=== PATIENT | male | born 1965 | race Caucasian/White ===

== ENCOUNTER 2017-11-24 08:49 | Outpatient (CLI) | payer MEDICAID | END 2017-11-24 08:50 | disposition critical access hospital (66) | LOC: EMS 08:49 | PROVIDERS: ATTEND Surgery | DX: R41.82 Altered mental status, unspecified (principal) | CPT/HCPCS: A0425; A0429 ==

== ENCOUNTER 2017-11-24 09:51 | Observation (INO) | payer MEDICAID ==
[2017-11-24] MEDS ORDERED: SODIUM CHLORIDE 0.9% 1,000 ML IV ONE ×2 (10:04→11:10)
--- NOTE | 2017-11-24 11:15 | ED Physician Documentation ---
History of Present Illness - Stated complaint Stated Complaint: MED REFILL - Chief complaint Chief Complaint: Neuro - History obtained from History obtained from: Patient, EMS - Additonal information Additional information: The patient is a 52-year-old male with care home history in a methadone program , who arrives via ambulance after he was found confused this morning, standing in a field. He was obviously cold and disheveled. Medics evaluated him and found no evidence of acute trauma, and a normal blood sugar of 98. After being placed in the ambulance and getting warmer, he was able to converse with medics. However he then became less responsive while in route to the emergency department. His last methadone use was yesterday, and he denies the use of any other drugs. He lives with his mother, and she told medics that she had not seen him since more than 24 hours ago. History is limited due to the patient's decreased mental status. Review of Systems Unable to obtain: AMS Constitutional: reports: Chills Cardiac: denies: Chest pain / pressure Respiratory: denies: Dyspnea GI: denies: Abdominal Pain Skin: reports: Lesions (open sore on left ankle) Neurologic: reports: Altered mental status PD PAST MEDICAL HISTORY - Past Medical History Cardiovascular: Deep vein thrombosis GI: Hepatitis - Past Surgical History Ortho: Spine surgery, Other - Present Medications Home Medications: Ambulatory Orders Medication Instructions Recorded Confirmed Methadone HCl [Methadose] 100 mg PO DAILY 03/14/16 03/14/16 Gabapentin [Gabapentin] 400 mg PO BID 11/24/17 Gabapentin [Gabapentin] 800 mg PO TID 11/24/17 Lisinopril [Lisinopril] 10 mg PO DAILY 11/24/17 11/24/17 Prazosin HCl [Prazosin HCl] 2 mg PO TID 11/24/17 11/24/17 Promethazine HCl [Promethazine HCl] 25 mg PO Q6H PRN 11/24/17 11/24/17 Tamsulosin [Flomax] 0.4 mg PO DAILY 11/24/17 11/24/17 cloNIDine HCl [Clonidine HCl] 0.3 mg PO TID 11/24/17 11/24/17 hydrOXYzine HCl [Hydroxyzine HCl] 50 mg PO Q6H 11/24/17 11/24/17 - Allergies Allergies/Adverse Reactions: Allergies Allergy/AdvReac Type Severity Reaction Status Date / Time No Known Drug Allergies Allergy Verified 03/14/16 04:37 - Living Situation Living Situation: reports: With family (Mother) Living Arrangement: reports: At home - Social History Does the pt smoke?: Yes Smoking Status: Current every day smoker Does the pt drink ETOH?: No Does the pt have substance abuse?: Yes - Immunizations Immunizations are current?: Yes PD ED PE NORMAL - Vitals Vital signs reviewed: Yes (hypertensive) - General General: Other (Ill kempt, cool to touch, with decreased level of alertness.) - HEENT HEENT: Atraumatic, EOMI, Other (Pupils are 3 mm equal and reactive.) - Neck Neck: Supple, no meningeal sign, No adenopathy - Cardiac Cardiac: RRR - Respiratory Respiratory: Clear bilaterally - Abdomen Abdomen: Soft, Non tender - Back Back: No CVA TTP - Derm Derm: Other (2-1/2 cm diameter open sore on the medial aspect of the left ankle. ) - Extremities Extremities: Other (Cool to touch, with abrasions scattered along the forearms and hands.) - Neuro Neuro: Other (Somnolent, but responds to verbal stimulation. Does not reliably answer questions, but does obey simple instructions. No focal motor or sensory deficit is detected.) Eye Opening: To Voice Motor: Obeys Commands Verbal: Confused GCS Score: 13 Results - Vitals Vitals: Vital Signs - 24 hr 11/24/17 11/24/17 09:55 12:19 Temperature 36 C L Heart Rate 62 48 L Respiratory 14 17 Rate Blood Pressure 169/87 H 168/93 H O2 Saturation 100 100 Oxygen O2 Source Room air - EKG (time done) 10:27 Rate: Rate (enter#) (49) Rhythm: Sinus bradycardia [place]: Normal Intervals: Normal NE, Prolonged QT QRS: Normal Ischemia: Normal ST segments Computer interpretation: Agree with computer - Labs Labs: Laboratory Tests 11/24/17 11/24/17 11/24/17 11:05 11:05 11:05 WBC 7.9 RBC 3.47 L Hgb 8.9 L Hct 27.2 L MCV 78.4 L MCH 25.5 L MCHC 32.6 RDW 19.4 H Plt Count 229 MPV 7.1 L Neut # 6.3 Lymph # 1.2 L Woodson # 0.3 Eos # 0.0 Baso # 0.0 Absolute Nucleated RBC 0.00 Nucleated RBC % 0.0 Sodium 141 Potassium 4.1 Chloride 113 H Carbon Dioxide 20 L Anion Gap 8.0 BUN 51 H Creatinine 2.0 H Estimated GFR (MDRD) 35 L Glucose 89 Lactic Acid Calcium 8.8 Total Bilirubin 0.6 AST 41 ALT 24 Alkaline Phosphatase 79 Total Creatine Kinase 3778 H* Troponin I < 0.04 Total Protein 8.3 H Albumin 3.1 L Globulin 5.2 H Albumin/Globulin Ratio 0.6 L Lipase 24 Urine Color Urine Clarity Urine pH Ur Specific [place] Urine Protein Urine Glucose (UA) Urine Ketones Urine Occult Blood Urine Nitrite Urine Bilirubin Urine Urobilinogen Ur Leukocyte Esterase Urine RBC Urine WBC Ur Squamous Epith Cells Urine Bacteria Ur Microscopic Review Urine Culture Comments Urine Opiates Screen Ur Oxycodone Screen Urine Methadone Screen Ur Propoxyphene Screen Ur Barbiturates Screen Ur Tricyclics Screen Ur Phencyclidine Scrn Ur Amphetamine Screen U Methamphetamines Scrn U Benzodiazepines Scrn Urine Cocaine Screen U Cannabinoids Screen 11/24/17 11/24/17 11:05 12:02 WBC RBC Hgb Hct MCV MCH MCHC RDW Plt Count MPV Neut # Lymph # [place]son # Eos # Baso # Absolute Nucleated RBC Nucleated RBC % Sodium Potassium Chloride Carbon Dioxide Anion Gap BUN Creatinine Estimated GFR (MDRD) Glucose Lactic Acid 0.7 Calcium Total Bilirubin AST ALT Alkaline Phosphatase Total Creatine Kinase Troponin I Total Protein Albumin Globulin Albumin/Globulin Ratio Lipase Urine Color YELLOW Urine Clarity CLEAR Urine pH 5.5 Ur Specific [place] 1.020 Urine Protein 100 H Urine Glucose (UA) NEGATIVE Urine Ketones NEGATIVE Urine Occult Blood LARGE H Urine Nitrite NEGATIVE Urine Bilirubin NEGATIVE Urine Urobilinogen 0.2 (NORMAL) Ur Leukocyte Esterase NEGATIVE Urine RBC 6-10 H Urine WBC 0-3 Ur Squamous Epith Cells NONE SEEN Urine Bacteria Rare Ur Microscopic Review INDICATED Urine Culture Comments NOT INDICATED Urine Opiates Screen POSITIVE H Ur Oxycodone Screen NEGATIVE Urine Methadone Screen POSITIVE H Ur Propoxyphene Screen NEGATIVE Ur Barbiturates Screen NEGATIVE Ur Tricyclics Screen NEGATIVE Ur Phencyclidine Scrn NEGATIVE Ur Amphetamine Screen NEGATIVE U Methamphetamines Scrn NEGATIVE U Benzodiazepines Scrn POSITIVE H Urine Cocaine Screen POSITIVE H U Cannabinoids Screen NEGATIVE - Rads (name of study) head CT Radiology: Prelim report reviewed, EMP read contemporaneously, See rad report ( Normal noncontrast head CT.) CXR Radiology: Prelim report reviewed, EMP read contemporaneously, See rad report ( Poor inspiratory effort. Atelectatic changes. No overt CHF, pneumonia, or other acute process.) PD MEDICAL DECISION MAKING - ED course Complexity details: reviewed results, re-evaluated patient, considered differential, d/w patient, d/w tour consultant ED course: The patient's clinical presentation is most significant for acute rhabdomyolysis , with a creatinine kinase of 3778. His urine tox screen is positive not only for methadone, but also for opiates, benzodiazepines, and cocaine. He appears dehydrated with a BUN 51 and creatinine 2.0, and a urine specific gravity 1.020. There is no physical evidence of acute trauma. CBC reveals anemia, with Hgb 8.9 and Hct 27.2. Establishing IV access was difficult in this patient with sclerosed veins, dehydration, and cold extremities. Initially an IV was established in a forehead vein. However the patient became transiently agitated and removed that IV. Anesthesia was consulted for PICC line placement. Several attempts at PICC line placement were unsuccessful. Subsequently an internal jugular vein was cannulated by anesthesia. Treatment in the emergency department included initiation of IV fluids. I discussed his condition with Dr. Neff who accepts him for admission to the hospital. Departure - Departure Disposition: 66 [facility] DC/Xfer Clinical Impression: Polysubstance abuse Rhabdomyolysis Qualifiers: Encounter type: initial encounter Anemia Qualifiers: Anemia type: unspecified type Qualified Code(s): D64.9 - Anemia, unspecified Skin ulcer Qualifiers: Non-pressure ulcer stage: unspecified non-pressure ulcer stage Qualified Code(s ): L98.499 - Non-pressure chronic ulcer of skin of other sites with unspecified severity Condition: Fair Discharge Date/Time: 11/24/17 14:34
[2017-11-24 11:22] LABS: BASOPHILS % (AUTO) 0.4 %; EOSINOPHILS % (AUTO) 0.1 %; HGB - HEMOGLOBIN 8.9 g/dL (14.0-18.0); LYMPHOCYTES # (AUTO) 1.2 10^3/uL (1.5-3.5); LYMPHOCYTES % (AUTO) 15.7 %; MEAN CORPUSCULAR HEMOGLOBIN 25.5 pg (27.0-31.0); MEAN CORPUSCULAR HGB CONC 32.6 g/dL (32.0-36.0); MEAN CORPUSCULAR VOLUME 78.4 fL (80.0-94.0); MEAN PLATELET VOLUME 7.1 fL (7.4-11.4); MONOCYTES # (AUTO) 0.3 10^3/uL (0.0-1.0); MONOCYTES % (AUTO) 4.3 %; NEUTROPHILS # (AUTO) 6.3 10^3/uL (1.5-6.6); NEUTROPHILS % (AUTO) 79.5 %; PLT - PLATELET COUNT 229 10^3/uL (130-450); RED BLOOD COUNT 3.47 10^6/uL (4.70-6.10); RED CELL DISTRIBUTION WIDTH 19.4 % (12.0-15.0); WHITE BLOOD COUNT 7.9 x10^3/uL (4.8-10.8)
--- NOTE | 2017-11-24 11:53 | CT Preliminary Report ---
Exam: CT HEAD W/O IMPRESSION: Normal examination. No demonstrated cause for the patient's symptoms. [facility] SITE ID: [id number]
[2017-11-24 11:55] LABS: ALBUMIN 3.1 g/dL (3.2-5.5); ALBUMIN/GLOBULIN RATIO 0.6 (1.0-2.2); BILIRUBIN,TOTAL 0.6 mg/dL (0.2-1.0); CALCIUM 8.8 mg/dL (8.5-10.3); TOTAL PROTEIN 8.3 g/dL (6.7-8.2)
--- NOTE | 2017-11-24 11:57 | XRAY Preliminary Report ---
Exam: XR CHEST 2 VIEW X-RAY IMPRESSION: Poor inspiratory effort. Atelectatic changes. No overt CHF, pneumonia or other acute proc ess. [facility] SITE ID: [id number]
--- NOTE | 2017-11-24 11:57 | CT Report ---
EXAM: CT HEAD EXAM DATE: 11/24/2017 11:40 AM. CLINICAL HISTORY: Decreased responsiveness in a 52-year-old male. COMPARISON: None. TECHNIQUE: Multiaxial CT images were obtained from the foramen magnum to the vertex. Reformats: Coron al. IV contrast: None. In accordance with CT protocol optimization, one or more of the following dose reduction techniques w ere utilized for this exam: automated exposure control, adjustment of mA and/or KV based on patient s ize, or use of iterative reconstructive technique. FINDINGS: Parenchyma: No intraparenchymal hemorrhage. No evidence of mass, midline shift, or CT findings of inf arction. Reyes-white differentiation is distinct. Extraaxial Spaces: Normal for age. No subdural or epidural collections identified. Ventricles: Normal in size and position. Sinuses and Orbits: Imaged paranasal sinuses, orbits, and mastoids show no significant abnormality. Bones: No evidence of fracture or calvarial defect. Other: None. IMPRESSION: Normal examination. No demonstrated cause for the patient's symptoms. [facility] Referring Provider Line: [phone] SITE ID: [id number]
--- NOTE | 2017-11-24 12:01 | XRAY Report ---
EXAM: CHEST RADIOGRAPHY, 2 VIEWS EXAM DATE: 11/24/2017 11:33 AM. CLINICAL HISTORY: 52-year-old male with cough. COMPARISON: None. TECHNIQUE: Sitting AP and lateral views. FINDINGS: Lungs/Pleura: Likely hypoventilatory changes both lung bases. No definite infiltrates. No pleural eff usion. No pneumothorax. Poor inspiratory effort. Mediastinum: Heart size normal considering body habitus and inspiratory effort. No pulmonary vascular congestion or adenopathy. Other: Trachea is midline. Osseous structures are unremarkable for age. IMPRESSION: Poor inspiratory effort. Atelectatic changes. No overt CHF, pneumonia, or other acute pro cess. [facility] Referring Provider Line: [phone] SITE ID: [id number]
[2017-11-24 12:19] LABS: MUDS CUTOFF CONCENTRATIONS CUTOFF CONC BELOW:
[2017-11-24 12:23] LABS: BILIRUBIN,URINE NEGATIVE (NEGATIVE); GLUCOSE, URINE (UA) NEGATIVE (NEGATIVE); KETONES,URINE (UA) NEGATIVE (NEGATIVE); LEUKOCYTE ESTERASE, URINE NEGATIVE (NEGATIVE); NITRITE,URINE NEGATIVE (NEGATIVE); OCCULT BLOOD,URINE LARGE (NEGATIVE); PH,URINE 5.5 PH (5.0-7.5); PROTEIN,URINE 100 mg/dL (NEGATIVE); UROBILINOGEN,URINE 0.2 (NORMAL) E.U./dL (NORMAL)
[2017-11-24 12:26] LABS: CLARITY,URINE CLEAR (CLEAR)
[2017-11-24 12:32] LABS: AMPHETAMINE SCREEN,URINE NEGATIVE (NEGATIVE); BENZODIAZEPINES SCREEN, URINE POSITIVE (NEGATIVE); COCAINE SCREEN URINE POSITIVE (NEGATIVE); METHADONE SCREEN, URINE POSITIVE (NEGATIVE); METHAMPHETAMINES SCREEN, URINE NEGATIVE (NEGATIVE); OPIATE SCREEN, URINE POSITIVE (NEGATIVE); OXYCODONE SCREEN, URINE NEGATIVE (NEGATIVE); PROPOXYPHENE SCREEN, URINE NEGATIVE (NEGATIVE); TRICYCLIC ANTIDEPRESSANT,URINE NEGATIVE (NEGATIVE)
[2017-11-24 12:38] LABS: BACTERIA,URINE Rare /HPF (None Seen); SQUAMOUS EPITHELIAL CELL,UR NONE SEEN (<= Few)
[2017-11-24] MEDS ORDERED: ACETAMINOPHEN 325 MG TABLET PO PRN (12:41)
[2017-11-24] MEDS ORDERED: PROCHLORPERAZINE 10 MG/2 ML VIAL IVP PRN (12:41)
[2017-11-24] MEDS ORDERED: ONDANSETRON 4 MG/2 ML VIAL IVP PRN (12:41)
--- NOTE | 2017-11-24 14:08 | ANESTHESIA PROCEDURE NOTE ---
Anesth Central Line Template - Central Line Central Line Preparation: Unable to obtain consent, Time out completed, Ultrasound used, Sterile prep and drape Central line location: Right IJ Central line type: Triple lumen Central line aftercare: Secured, Placement confirmed, No pneumothorax, No complications, Bundle checklist complete, Pt tolerated well Other Info/Details: Call to ED for obtunded pt. Dx; Rhabdo/ decreased LOC. Unable to obtain consent. R neck prepped with chlorhexadine. Drape after gown, gloves, mask, cap. Easy access of R IJ with US. Wire threaded without ectopy. Dilator. Triple lumen 20cm cath threaded to 19. Secured after 3 ports aspirate/flush easily. Secured with suture and dressing. Call for PCXR to confirm placement.
[2017-11-24] MEDS: SODIUM CHLORIDE FLUSH 0.9% 10 ML SYRINGE IVP PRN (14:31)
[2017-11-24] MEDS: SODIUM CHLORIDE 0.9% 1,000 ML IV SCH ×2 (14:31→20:15)
--- NOTE | 2017-11-24 14:34 | HISTORY & PHYSICAL EXAMINATION ---
Chief Complaint - Chief Complaint Chief Complaint: Altered mental status History of Present Illness - Admitted From Admitted From:: Emergency department - History Obtained From Records Reviewed: Yes History obtained from: Patient, medical records, EMS records Exam Limitations: Patient is very lethargic and unable to provide much history - History of Present Illness HPI Comment/Other: Patient is a 52-year-old gentleman with a past medical history of polysubstance abuse and hypertension who presents to the emergency department secondary to altered mental status. According to report from EMS the patient was found in a field leaning against a pole. He was seen there by pedestrians were passing by and they called 911. On arrival of EMS the patient was still leaning on a pole in the field and was arousable. He told EMS that he takes methadone [place] The patient however was quite drowsy and EMS called the emergency department who told them to bring the patient in to the ER. When asked the patient states that he does not recall any of the events of what happened earlier in the day. Although the patient admitted to the nurse that he still uses IV drugs he denied this to me. After many attempts to try to obtain a history from the patient I had to give up when the patient would continually doze off. The patient was protecting his airway and was breathing however he was extremely lethargic. According to the emergency room physician the patient lives with his mother but his mother had not seen him in over 24 hours. On arrival to the emergency department the patient was afebrile, he was hypertensive but otherwise remainder of his vital signs are within normal limits. The patient's initial lab work revealed a hemoglobin of 8.9 which appears to be near his baseline from 2 years earlier. The patient's creatinine was elevated at 2.0 from a baseline of 1.3. The patient had large occult blood with RBCs in his urine. His total CK was elevated at 3778. The patient was off and on lethargic in the emergency department. At one point he got up out of the bed to urinate but then later again was very lethargic. The entire time the patient was protecting his airway and was breathing appropriately therefore he did not receive any Narcan. The patient was a very difficult stick for IV and initially got an IV in his forehead however this was ripped out when he went to urinate. The patient eventually had a central line placed by anesthesia for IV fluids. The patient was placed in observation for altered mental status which appeared most likely to be from drug abuse as the patient's urine tox screen was positive for opiates, methadone, benzodiazepines and cocaine. The patient will also receive IV fluids for his rhabdomyolysis and acute kidney injury. Speaking to the patient's mother over the phone she states that the patient has been staying with her for the last several months. She states that prior to that he was staying in [place] but lost his apartment. She states that he has been going back and forth to [place] to a methadone clinic where he has been trying to wean off of methadone so that he can be started on Suboxone. She states that he went to the clinic yesterday morning and she has not seen him since. She was under the impression that he was going to return back to her home with his common-law/. She states that she fell asleep last night and when she woke this morning he was not back. She states that although he has been clean for some time he does relapse and do Xanax from time to time at least this is what she believes. She states that he has been hospitalized several times in the past mostly at [facility] in [place] and [facility] in [place]. She states he has also been hospitalized at [facility]. She states that over the last several months she has noticed that he has lost a lot of weight and he just does not walk very good. She worries that his health is deteriorating. According to her he has hepatitis C with cirrhosis, hypertension, peripheral vascular disease status post amputation of 2 of his toes, depression, BPH, COPD and chronic kidney disease. She also states that he has been doing drugs since the age of 13 and has been through many rehab programs to his life. She states that she is not sure what had happened to him but would not be surprised if he did get high on drugs. She states that the last time she saw him he was not having any fevers, chills, cough or any other symptoms that she noted. History - Past Medical History Cardiovascular: reports: Hypertension, Peripheral Vascular Disease (Status post toe amputation), Deep vein thrombosis Respiratory: reports: COPD GI: reports: Hepatitis, Cirrhosis (Hepatitis C) : reports: Benign prostate hypertrophy, Renal insuffiency Psych: reports: Depression Derm: reports: Other (Cellulitis and recurrent infections of his lower extremities) MRSA Hx?: Yes Other Past Medical History: Venous stasis of lower extremities with venous stasis ulcers, IV drug user, Polysubstance abuse - Past Surgical History Ortho: reports: Spine surgery, Other - Family & Social History Family History: Mother: Alive and Well, Father: (Father of congestive heart failure, brother committed suicide and another brother had coronary artery disease), CAD, NC (Strong family history of MIs at early age including father had NC at 37), Brother: , CAD, Mental Illness (Brother committed suicide), NC, Other family: Cancer (Daughter), CVA/TIA (Grandmother), NC Living arrangement: At home Living Situation: With family Social History Notes: The patient currently lives with his mother in [place], [place]. The patient was born in [place]. He has been a drug user since the age of 13. He started off smoking pot and drinking alcohol then progressed to cocaine and IV drugs such as heroin. He has been through many rehab programs over the years. In fact he met his current common law/ at [facility] about 17 years ago. They have been together off and on since. The patient has had 3 children. One daughter who at a young age of neuroblastoma. He has 2 sons who are currently living with his mother. He did not raise either of his 2 sons they were raised by his mother. The patient was living in [place] up until this [place] when he was kicked out of his apartment. The patient still goes back to [place] on a daily basis to get methadone from a methadone clinic. According to the patient's mother the patient still has some relapses and she believes he takes Xanax when he relapses. She states that he does smoke cigarettes but does not have money to afford cigarettes so usually bums off cigarettes whenever he can. He does not drink alcohol. As mentioned before he is a previous IV drug user and has used multiple drugs throughout his life. - POLST Patient has POLST: No POLST Status: Full Code Meds/Allgy - Home Medications Home Medications: Ambulatory Orders Medication Instructions Recorded Confirmed Methadone HCl [Methadose] 100 mg PO DAILY 03/14/16 03/14/16 Gabapentin [Gabapentin] 400 mg PO BID 11/24/17 Gabapentin [Gabapentin] 800 mg PO TID 11/24/17 Lisinopril [Lisinopril] 10 mg PO DAILY 11/24/17 11/24/17 Prazosin HCl [Prazosin HCl] 2 mg PO TID 11/24/17 11/24/17 Promethazine HCl [Promethazine HCl] 25 mg PO Q6H PRN 11/24/17 11/24/17 Tamsulosin [Flomax] 0.4 mg PO DAILY 11/24/17 11/24/17 cloNIDine HCl [Clonidine HCl] 0.3 mg PO TID 11/24/17 11/24/17 hydrOXYzine HCl [Hydroxyzine HCl] 50 mg PO Q6H 11/24/17 11/24/17 - Allergies Allergies/Adverse Reactions: Allergies Allergy/AdvReac Type Severity Reaction Status Date / Time No Known Drug Allergies Allergy Verified 03/14/16 04:37 Review of Systems - Other Findings Other Findings: The patient is unable to provide a comprehensive review of systems secondary to his altered mental status and lethargy. Exam - Vital Signs Reviewed Vital Signs: Yes Vital Signs: Vital Signs x48h Temp Pulse Pulse Resp BP BP Pulse Ox 11/24/17 14:18 36.3 C L 70 12 182/86 H 100 11/24/17 13:24 75 14 185/100 H 100 - Physical Exam General Appearance: positive: Lethargic (Arousable but does not remain awake long enough to answer questions) Eyes Bilateral: positive: Normal inspection, PERRL, EOMI, No lid inflammation, Conjunctivae nml, No scleral icterus ENT: positive: ENT inspection nml, Pharynx nml, Dry mucous membranes. negative : Purulent nasal drainage, Pharyngeal erythema, Oral lesions Neck: positive: Nml inspection, Thyroid nml, No JVD, Trachea midline. negative : Lymphadenopathy (R), Lymphadenopathy (L) Respiratory: positive: Chest non-tender, No respiratory distress, Breath sounds nml. negative: Wheezes, Rales, Rhonchi Cardiovascular: positive: Regular rate & rhythm, No murmur, No gallop Peripheral Pulses: positive: 2+ Abdomen: positive: Non-tender, No organomegaly, Nml bowel sounds, No distention. negative: Guarding, Rebound, Hepatomegaly Back: positive: Nml inspection. negative: CVA tenderness (R), CVA tenderness (L ) Skin: positive: Other (Chronic venous stasis changes of lower extremities with hyperpigmentation and ulcers) Extremities: positive: Full ROM, No pedal edema, Other (LE tenderness) Neurologic/Psychiatric: positive: Other (Very lethargic, arousable but not answering questions) Conclusion/Plan - Problem List (1) Encephalopathy Conclusion/Plan: Patient presented with lethargy which appears likely secondary to polysubstance abuse. The patient has a history of opioid and heroin abuse. According to his mother he also has a history of Xanax abuse. Patient's U tox is positive for opiates, methadone, benzodiazepines and cocaine. His current presentation looks to be a likely methadone/opiate and/or benzo related. According to the patient's mom the patient goes to a methadone clinic in [place] where he has been tapering down on his methadone and most recently was down from 83 mg to 81 mg a day. She says that he has been trying to taper down so that he can get started on Suboxone. She did state that he does have periodic remissions when he will start abusing drugs again. The patient's mother did not see him for over 24 hours until he arrived here at the hospital. The patient was found in the field lethargic leaning against a pole. Despite several hours in the emergency department the patient was still very lethargic CT head was negative as mentioned above U tox was positive. Patient did not have any signs or symptoms of acute infection. Patient's urinalysis was negative for infection. Patient did have acute kidney injury and rhabdomyolysis which is likely drug-induced. The patient does have chronic ulcers on his legs but they do not appear to be acutely infected at this time. Patient is protecting his airway and breathing at a normal rate therefore we will not try giving him Narcan at this time. Plan: Give IV fluids Monitor patient I expect that as the offending drug metabolizes out of the patient's body the patient will become more and more alert and awake. (2) Rhabdomyolysis Conclusion/Plan: Patient likely has drug induced rhabdomyolysis he does have cocaine in his system. Patient may have also been lying in the field for extended period of time as the patient had not been seen for 24 hours. The patient has a total creatinine kinase of 3778 on presentation with acute kidney injury with a creatinine of 2.0. The patient's previous creatinine 2 years ago was 1.3 however his mother did state that he the patient has chronic kidney disease and she had been told that he potentially could need dialysis. It is unclear as to what the patient's baseline creatinine may be recently. Plan: IV fluids to flush out the patient's CK Monitor CK every 6 hours Monitor creatinine every 6 hours Qualifiers: Encounter type: initial encounter (3) CHUCKIE (acute kidney injury) Conclusion/Plan: Patient has acute on chronic renal failure creatinine is elevated at 2.0 previous creatinine was 1.3 and 2016. We do not have any current creatinines on the patient however his mother does state that he does have kidney disease. The patient appears to be dry on examination and his current renal failure could be secondary to dehydration and lack of intake over the last 24 hours or could also be secondary to rhabdomyolysis. Plan: We will give IV fluids Avoid nephrotoxic agents Monitor creatinine (4) Hypertension Conclusion/Plan: Patient has history of hypertension and according to his mother has been hospitalized in the past for hypertension. Patient is quite hypertensive on presentation. Patient's blood pressure is in the 160s-180s systolic and 90s- 100s diastolic. Plan: Patient will be placed on clonidine 0.2 mg 3 times daily We will monitor his blood pressure We will consider titrating medication or adding new medications if needed per Qualifiers: Hypertension type: essential hypertension Qualified Code(s): I10 - Essential (primary) hypertension (5) Anemia Conclusion/Plan: The patient's hemoglobin is 8.9 on presentation it appears that in 2016 it was 8.8 this may be chronic anemia. Patient has a low MCV and likely has iron deficiency anemia. The patient does not appear to be having a GI bleed. Plan: Iron studies B12 Folate Monitor hemoglobin Qualifiers: Anemia type: unspecified type Qualified Code(s): D64.9 - Anemia, unspecified (6) Polysubstance abuse Conclusion/Plan: The patient has a history of polysubstance abuse but was recently cleaning according to his mom. Patient was on a methadone taper from the methadone clinic in [place]. It appears however the patient abuses drugs yesterday as he does have opiates, methadone, benzodiazepines and cocaine in his urine tox screen. Plan: We will need to watch for withdrawal and patient will be given Ativan and clonidine for withdrawal as needed Social work consult will need to offer the patient resources for drug rehab IV fluids (7) Chronic ulcer of leg Conclusion/Plan: The patient has 2 chronic ulcers of his leg. These appear to be venous stasis ulcers as he does have hyperpigmentation of the skin on his bilateral lower extremities. According to his mother he also had peripheral vascular disease requiring amputation of his toe. Currently the ulcers do not appear infected. We will get a wound consult. The patient appears to have history of neuropathy in his legs and is on gabapentin which we will continue Qualifiers: Laterality: left Non-pressure ulcer stage: limited to breakdown of skin Qualified Code(s): L97.921 - Non-pressure chronic ulcer of unspecified part of left lower leg limited to breakdown of skin - Lab Results Lab results reviewed: Yes Fish Bones: 11/24/17 11:05 11/24/17 11:05 Other Lab Results: Laboratory Results WBC 7.9 x10^3/uL (4.8-10.8) 11/24/17 11:05 RBC 3.47 10^6/uL (4.70-6.10) L 11/24/17 11:05 Hgb 8.9 g/dL (14.0-18.0) L 11/24/17 11:05 Hct 27.2 % (42.0-52.0) L 11/24/17 11:05 MCV 78.4 fL (80.0-94.0) L 11/24/17 11:05 MCH 25.5 pg (27.0-31.0) L 11/24/17 11:05 MCHC 32.6 g/dL (32.0-36.0) 11/24/17 11:05 RDW 19.4 % (12.0-15.0) H 11/24/17 11:05 Plt Count 229 10^3/uL (130-450) 11/24/17 11:05 MPV 7.1 fL (7.4-11.4) L 11/24/17 11:05 Neut # 6.3 10^3/uL (1.5-6.6) 11/24/17 11:05 Lymph # 1.2 10^3/uL (1.5-3.5) L 11/24/17 11:05 Starr # 0.3 10^3/uL (0.0-1.0) 11/24/17 11:05 Eos # 0.0 10^3/uL (0.0-0.7) 11/24/17 11:05 Baso # 0.0 10^3/uL (0.0-0.1) 11/24/17 11:05 Absolute Nucleated RBC 0.00 x10^3/uL 11/24/17 11:05 Nucleated RBC % 0.0 /100WBC 11/24/17 11:05 Sodium 141 mmol/L (135-145) 11/24/17 11:05 Potassium 4.1 mmol/L (3.5-5.0) 11/24/17 11:05 Chloride 113 mmol/L (101-111) H 11/24/17 11:05 Carbon Dioxide 20 mmol/L (21-32) L 11/24/17 11:05 Anion Gap 8.0 (6-13) 11/24/17 11:05 BUN 51 mg/dL (6-20) H 11/24/17 11:05 Creatinine 2.0 mg/dL (0.6-1.2) H 11/24/17 11:05 Estimated GFR (MDRD) 35 (>89) L 11/24/17 11:05 Glucose 89 mg/dL (70-100) 11/24/17 11:05 Lactic Acid 0.7 mmol/L (0.5-2.2) 11/24/17 11:05 Calcium 8.8 mg/dL (8.5-10.3) 11/24/17 11:05 Total Bilirubin 0.6 mg/dL (0.2-1.0) 11/24/17 11:05 AST 41 IU/L (10-42) 11/24/17 11:05 ALT 24 IU/L (10-60) 11/24/17 11:05 Alkaline Phosphatase 79 IU/L (42-121) 11/24/17 11:05 Ammonia 9.0 umol/L (7-35) 11/24/17 15:59 Total Creatine Kinase 3778 IU/L (22-269) H* 11/24/17 11:05 Troponin I < 0.04 ng/mL (<0.49) 11/24/17 11:05 Total Protein 8.3 g/dL (6.7-8.2) H 11/24/17 11:05 Albumin 3.1 g/dL (3.2-5.5) L 11/24/17 11:05 Globulin 5.2 g/dL (2.1-4.2) H 11/24/17 11:05 Albumin/Globulin Ratio 0.6 (1.0-2.2) L 11/24/17 11:05 Lipase 24 U/L (22-51) 11/24/17 11:05 Urine Color YELLOW 11/24/17 12:02 Urine Clarity CLEAR (CLEAR) 11/24/17 12:02 Urine pH 5.5 PH (5.0-7.5) 11/24/17 12:02 Ur Specific [place] 1.020 (1.002-1.030) 11/24/17 12:02 Urine Protein 100 mg/dL (NEGATIVE) H 11/24/17 12:02 Urine Glucose (UA) NEGATIVE mg/dL (NEGATIVE) 11/24/17 12:02 Urine Ketones NEGATIVE mg/dL (NEGATIVE) 11/24/17 12:02 Urine Occult Blood LARGE (NEGATIVE) H 11/24/17 12:02 Urine Nitrite NEGATIVE (NEGATIVE) 11/24/17 12:02 Urine Bilirubin NEGATIVE (NEGATIVE) 11/24/17 12:02 Urine Urobilinogen 0.2 (NORMAL) E.U./dL (NORMAL) 11/24/17 12:02 Ur Leukocyte Esterase NEGATIVE (NEGATIVE) 11/24/17 12:02 Urine RBC 6-10 /HPF (0-5) H 11/24/17 12:02 Urine WBC 0-3 /HPF (0-3) 11/24/17 12:02 Ur Squamous Epith Cells NONE SEEN (<= Few) 11/24/17 12:02 Urine Bacteria Rare /HPF (None Seen) 11/24/17 12:02 Ur Microscopic Review INDICATED 11/24/17 12:02 Urine Culture Comments NOT INDICATED 11/24/17 12:02 Urine Opiates Screen POSITIVE (NEGATIVE) H 11/24/17 12:02 Ur Oxycodone Screen NEGATIVE (NEGATIVE) 11/24/17 12:02 Urine Methadone Screen POSITIVE (NEGATIVE) H 11/24/17 12:02 Ur Propoxyphene Screen NEGATIVE (NEGATIVE) 11/24/17 12:02 Ur Barbiturates Screen NEGATIVE (NEGATIVE) 11/24/17 12:02 Ur Tricyclics Screen NEGATIVE (NEGATIVE) 11/24/17 12:02 Ur Phencyclidine Scrn NEGATIVE (NEGATIVE) 11/24/17 12:02 Ur Amphetamine Screen NEGATIVE (NEGATIVE) 11/24/17 12:02 U Methamphetamines Scrn NEGATIVE (NEGATIVE) 11/24/17 12:02 U Benzodiazepines Scrn POSITIVE (NEGATIVE) H 11/24/17 12:02 Urine Cocaine Screen POSITIVE (NEGATIVE) H 11/24/17 12:02 U Cannabinoids Screen NEGATIVE (NEGATIVE) 11/24/17 12:02 - Diagnostic Imaging Results Diagnostic Imaging Results: positive: Final report reviewed Diagnostic Imaging Results Comments: EXAM: [id number] CT/HEADWO ([id number]) EXAM: CT HEAD EXAM DATE: 11/24/2017 11:40 AM. CLINICAL HISTORY: Decreased responsiveness in a 52-year-old male. COMPARISON: None. TECHNIQUE: Multiaxial CT images were obtained from the foramen magnum to the vertex. Reformats: Coronal. IV contrast: None. In accordance with CT protocol optimization, one or more of the following dose reduction techniques were utilized for this exam: automated exposure control, adjustment of mA and/or KV based on patient size, or use of iterative reconstructive technique. FINDINGS: Parenchyma: No intraparenchymal hemorrhage. No evidence of mass, midline shift, or CT findings of infarction. Reyes-white differentiation is distinct. Extraaxial Spaces: Normal for age. No subdural or epidural collections identified. Ventricles: Normal in size and position. Sinuses and Orbits: Imaged paranasal sinuses, orbits, and mastoids show no significant abnormality. Bones: No evidence of fracture or calvarial defect. Other: None. IMPRESSION: Normal examination. No demonstrated cause for the patient's symptoms. EXAM: [id number] XR/CXRLP ([id number]) FRONTAL CHEST: 11/24/2017 CLINICAL INDICATION: Line placement. COMPARISON: 11/24/2017. FINDINGS: Frontal view of the chest demonstrates a right jugular central venous catheter terminating in the proximal right atrium. Scattered atelectasis is noted. The cardiac silhouette is not enlarged. No effusion or pneumothorax is seen. IMPRESSION: RIGHT JUGULAR CENTRAL VENOUS CATHETER TERMINATING IN THE PROXIMAL RIGHT ATRIUM EXAM: [id number] XR/CXR2VW ([id number]) EXAM: CHEST RADIOGRAPHY, 2 VIEWS EXAM DATE: 11/24/2017 11:33 AM. CLINICAL HISTORY: 52-year-old male with cough. COMPARISON: None. TECHNIQUE: Sitting AP and lateral views. FINDINGS: Lungs/Pleura: Likely hypoventilatory changes both lung bases. No definite infiltrates. No pleural effusion. No pneumothorax. Poor inspiratory effort. Mediastinum: Heart size normal considering body habitus and inspiratory effort. No pulmonary vascular congestion or adenopathy. Other: Trachea is midline. Osseous structures are unremarkable for age. IMPRESSION: Poor inspiratory effort. Atelectatic changes. No overt CHF, pneumonia, or other acute process. - EKG Results EKG Interpreted Independently: Yes EKG Findings: Sinus bradycardia no ST changes Core Measures - Anticipated LOS I expect patient to be DC'd or transferred within 96 hours.: Yes - DVT/VTE - Prophylaxis VTE/DVT Device ordered at admit?: Yes
--- NOTE | 2017-11-24 15:14 | XRAY Report ---
FRONTAL CHEST: 11/24/2017 CLINICAL INDICATION: Line placement. COMPARISON: 11/24/2017. FINDINGS: Frontal view of the chest demonstrates a right jugular central venous catheter terminating in the proximal right atrium. Scattered atelectasis is noted. The cardiac silhouette is not enlarged. No effusion or pneumothorax is seen. IMPRESSION: RIGHT JUGULAR CENTRAL VENOUS CATHETER TERMINATING IN THE PROXIMAL RIGHT ATRIUM. TD: 11/24/2017 15:13
[2017-11-24 18:05] LABS: CALCIUM 8.5 mg/dL (8.5-10.3); CREATININE 1.8 mg/dL (0.6-1.2)
[2017-11-24] MEDS: SODIUM CHLORIDE FLUSH 0.9% 10 ML SYRINGE IVP SCH (20:44)
[2017-11-24] MEDS: cloNIDine 0.1 MG TABLET PO SCH ×2 (22:24→22:27)
[2017-11-24] MEDS: GABAPENTIN 400 MG CAPSULE PO SCH (22:24)
[2017-11-24 23:16] LABS: CALCIUM 8.4 mg/dL (8.5-10.3); CREATININE 1.8 mg/dL (0.6-1.2)
[2017-11-25] MEDS: SODIUM CHLORIDE 0.9% 1,000 ML IV SCH ×3 (01:07→11:04)
[2017-11-25] MEDS: LORazepam 0.5 MG TABLET PO PRN ×2 (01:13→09:00)
[2017-11-25] MEDS ORDERED: SODIUM CHLORIDE FLUSH 0.9% 10 ML SYRINGE IVP PRN (02:28)
[2017-11-25] MEDS: cloNIDine 0.1 MG TABLET PO SCH ×2 (05:45→14:10)
[2017-11-25 06:20] LABS: BASOPHILS % (AUTO) 0.5 %; EOSINOPHILS % (AUTO) 0.4 %; HGB - HEMOGLOBIN 9.2 g/dL (14.0-18.0); LYMPHOCYTES # (AUTO) 1.3 10^3/uL (1.5-3.5); LYMPHOCYTES % (AUTO) 16.6 %; MEAN CORPUSCULAR HGB CONC 31.7 g/dL (32.0-36.0); MEAN CORPUSCULAR VOLUME 78.7 fL (80.0-94.0); MEAN PLATELET VOLUME 6.4 fL (7.4-11.4); MONOCYTES # (AUTO) 0.4 10^3/uL (0.0-1.0); MONOCYTES % (AUTO) 4.7 %; NEUTROPHILS # (AUTO) 6.2 10^3/uL (1.5-6.6); NEUTROPHILS % (AUTO) 77.8 %; PLT - PLATELET COUNT 254 10^3/uL (130-450); RED BLOOD COUNT 3.68 10^6/uL (4.70-6.10); RED CELL DISTRIBUTION WIDTH 19.6 % (12.0-15.0); WHITE BLOOD COUNT 7.9 x10^3/uL (4.8-10.8)
[2017-11-25] MEDS: SODIUM CHLORIDE FLUSH 0.9% 10 ML SYRINGE IVP PRN ×2 (06:20→06:21)
[2017-11-25] MEDS: SODIUM CHLORIDE FLUSH 0.9% 10 ML SYRINGE IVP SCH ×2 (06:20→11:04)
[2017-11-25 06:52] LABS: CALCIUM 8.2 mg/dL (8.5-10.3); CREATININE 1.7 mg/dL (0.6-1.2); PHOSPHORUS 3.5 mg/dL (2.5-4.6)
[2017-11-25] MEDS: GABAPENTIN 400 MG CAPSULE PO SCH (09:00)
[2017-11-25] MEDS ORDERED: POLYETHYLENE GLYCOL 3350 17 GM PACKET PO SCH (09:00)
[2017-11-25] MEDS ORDERED: FAMOTIDINE 20 MG TABLET PO SCH (09:00)
[2017-11-25 09:03] VITALS: BP 143/91
[2017-11-25] MEDS ORDERED: METHADONE 5 MG TABLET PO SCH (10:00)
[2017-11-25 11:47] LABS: CALCIUM 8.2 mg/dL (8.5-10.3); CREATININE 1.6 mg/dL (0.6-1.2)
--- NOTE | 2017-11-25 11:51 | Discharge Plan ---
Discharge Plan Disposition: 01 Home, Self Care Condition: Fair Diet: Regular Activity Restrictions: No Restrictions Shower Restrictions: No Driving Restrictions: No Weight Bearing: Full Weight Additional Instructions or Follow Up instructions: You presented to the emergency department with lethargy and were found to have rhabdomyolysis and acute kidney injury. We treated you with IV fluids with which you had improvement in your kidney function as well as your CK levels. We advised that you continue to drink plenty of fluid and stay away from any illicit drugs including Xanax. Please continue to follow-up at your methadone clinic and please consider seeing a psychiatrist to have benzos supplied to you from a regulated source. No Smoking: If you smoke, Please STOP! Call for help.
[2017-11-25] MEDS ORDERED: PETROLATUM WHITE 5 GM PACKET TOP PRN (12:47)
--- NOTE | 2017-11-25 13:14 | DISCHARGE SUMMARY ---
Discharge Summary Admit Date: 11/24/17 Discharge Date: 11/25/17 Discharging Provider: Luis Neff MD Primary Care Provider: None Code Status: Attempt Resuscitation Condition at Discharge: Fair Discharge Disposition: 01 Home, Self Care - DIAGNOSES Admission Diagnoses: 1. Encephalopathy 2. Rhabdomyolysis 3. Acute kidney injury 4. Hypertension 5. Anemia 6. Polysubstance abuse 7. Chronic ulcer of leg Discharge Diagnoses with Status of Each Condition: 1. Encephalopathy: Resolved 2. Rhabdomyolysis: Improving 3. Acute kidney injury: Improving 4. Essential Hypertension: Stable 5. Anemia, unspecified: Stable 6. Polysubstance abuse: Stable 7. Chronic ulcer of leg: Stable - HPI History of Present Illness: Patient is a 52-year-old gentleman with a past medical history of polysubstance abuse and hypertension who presents to the emergency department secondary to altered mental status. According to report from EMS the patient was found in a field leaning against a pole. He was seen there by pedestrians were passing by and they called 911. On arrival of EMS the patient was still leaning on a pole in the field and was arousable. He told EMS that he takes methadone and needed to get to the methadone clinic [place]. The patient however was quite drowsy and EMS called the emergency department who told them to bring the patient in to the ER. When asked the patient states that he does not recall any of the events of what happened earlier in the day. Although the patient admitted to the nurse that he still uses IV drugs he denied this to me. After many attempts to try to obtain a history from the patient I had to give up when the patient would continually doze off. The patient was protecting his airway and was breathing however he was extremely lethargic. According to the emergency room physician the patient lives with his mother but his mother had not seen him in over 24 hours. On arrival to the emergency department the patient was afebrile, he was hypertensive but otherwise remainder of his vital signs are within normal limits. The patient's initial lab work revealed a hemoglobin of 8.9 which appears to be near his baseline from 2 years earlier. The patient's creatinine was elevated at 2.0 from a baseline of 1.3. The patient had large occult blood with RBCs in his urine. His total CK was elevated at 3778. The patient was off and on lethargic in the emergency department. At one point he got up out of the bed to urinate but then later again was very lethargic. The entire time the patient was protecting his airway and was breathing appropriately therefore he did not receive any Narcan. The patient was a very difficult stick for IV and initially got an IV in his forehead however this was ripped out when he went to urinate. The patient eventually had a central line placed by anesthesia for IV fluids. The patient was placed in observation for altered mental status which appeared most likely to be from drug abuse as the patient's urine tox screen was positive for opiates, methadone, benzodiazepines and cocaine. The patient will also receive IV fluids for his rhabdomyolysis and acute kidney injury. Speaking to the patient's mother over the phone she states that the patient has been staying with her for the last several months. She states that prior to that he was staying in [place] but lost his apartment. She states that he has been going back and forth to [place] to a methadone clinic where he has been trying to wean off of methadone so that he can be started on Suboxone. She states that he went to the clinic yesterday morning and she has not seen him since. She was under the impression that he was going to return back to her home with his common-law/. She states that she fell asleep last night and when she woke this morning he was not back. She states that although he has been clean for some time he does relapse and do Xanax from time to time at least this is what she believes. She states that he has been hospitalized several times in the past mostly at [facility] in [place] and [facility] in [place]. She states he has also been hospitalized at [facility]. She states that over the last several months she has noticed that he has lost a lot of weight and he just does not walk very good. She worries that his health is deteriorating. According to her he has hepatitis C with cirrhosis, hypertension, peripheral vascular disease status post amputation of 2 of his toes, depression, BPH, COPD and chronic kidney disease. She also states that he has been doing drugs since the age of 13 and has been through many rehab programs to his life. She states that she is not sure what had happened to him but would not be surprised if he did get high on drugs. She states that the last time she saw him he was not having any fevers, chills, cough or any other symptoms that she noted. - HOSPITAL COURSE Hospital Course: The patient was placed in observation and treated with IV fluids for his rhabdomyolysis and acute kidney injury. He was also started on clonidine for hypertension. The patient slowly improved and returned to his baseline mental status by the following morning. He stated that he had in fact bought some Xanax on the street and this led to him becoming altered and confused he states it was a bad trip. The following morning we were able to confirm his methadone dose with the methadone clinic and gave him a dose of 80 mg of methadone. The patient's rhabdomyolysis was improving as his CK improved from 3778 down to 2001 by the time of discharge. The patient also had an improvement in his acute kidney injury where his creatinine came from 2.0 down to 1.6. The patient did admit that he does have chronic kidney disease and this may be near his baseline creatinine. The patient had returned to his baseline and was discharged home to his mother's house. The patient will continue to go to the methadone clinic. The patient was counseled on the need to quit using Xanax or other illicit substances. The patient does seem to be committed to cutting down his methadone dose and getting onto Suboxone eventually. - ALLERGIES Allergies/Adverse Reactions: Allergies Allergy/AdvReac Type Severity Reaction Status Date / Time No Known Drug Allergies Allergy Verified 03/14/16 04:37 - MEDICATIONS Home Medications: Ambulatory Orders Medication Instructions Recorded Confirmed Methadone HCl [Methadose] 81 mg PO DAILY 03/14/16 11/25/17 Gabapentin 400 mg PO BID 11/24/17 11/25/17 Lisinopril 10 mg PO DAILY 11/24/17 11/24/17 Prazosin HCl 2 mg PO TID 11/24/17 11/24/17 Promethazine HCl 25 mg PO Q6H PRN 11/24/17 11/24/17 Tamsulosin [Flomax] 0.4 mg PO DAILY 11/24/17 11/24/17 cloNIDine HCl [Clonidine HCl] 0.3 mg PO TID 11/24/17 11/24/17 hydrOXYzine HCl [Hydroxyzine HCl] 50 mg PO Q6H 11/24/17 11/24/17 - PHYSICAL EXAM AT DISCHARGE General Appearance: positive: No acute distress, Alert, Other (Drowsy) Eyes Bilateral: positive: Normal inspection, PERRL, EOMI, No lid inflammation, Conjunctivae nml, No scleral icterus ENT: positive: ENT inspection nml, Pharynx nml, No signs of dehydration. negative: Purulent nasal drainage, Pharyngeal erythema, Oral lesions Neck: positive: Nml inspection, Thyroid nml, No JVD, Trachea midline. negative : Thyromegaly, Lymphadenopathy (R), Lymphadenopathy (L), Stiff neck, Carotid bruit, Tracheal deviation Respiratory: positive: Chest non-tender, No respiratory distress, Breath sounds nml. negative: Wheezes, Rales, Rhonchi Cardiovascular: positive: Regular rate & rhythm, No murmur, No gallop Peripheral Pulses: positive: 2+ Abdomen: positive: Non-tender, No organomegaly, Nml bowel sounds, No distention. negative: Guarding, Rebound, Hepatomegaly Back: positive: Nml inspection. negative: CVA tenderness (R), CVA tenderness (L ) Skin: positive: Color nml, Warm, Other (Patient has 2 ulcers on his lower extremity. These ulcers appear to be healing and do not appear infected.). negative: Cyanosis, Diaphoresis, Pallor Extremities: positive: Full ROM, No pedal edema, Other (Ulcers as above) Neurologic/Psychiatric: positive: Oriented x3, CN's nml (2-12), Motor nml, Sensation nml - LABS Result Diagrams: 11/25/17 06:05 11/25/17 11:00 Other Lab Results: Laboratory Results WBC 7.9 x10^3/uL (4.8-10.8) 11/25/17 06:05 RBC 3.68 10^6/uL (4.70-6.10) L 11/25/17 06:05 Hgb 9.2 g/dL (14.0-18.0) L 11/25/17 06:05 Hct 29.0 % (42.0-52.0) L 11/25/17 06:05 MCV 78.7 fL (80.0-94.0) L 11/25/17 06:05 MCH 25.0 pg (27.0-31.0) L 11/25/17 06:05 MCHC 31.7 g/dL (32.0-36.0) L 11/25/17 06:05 RDW 19.6 % (12.0-15.0) H 11/25/17 06:05 Plt Count 254 10^3/uL (130-450) 11/25/17 06:05 MPV 6.4 fL (7.4-11.4) L 11/25/17 06:05 Neut # 6.2 10^3/uL (1.5-6.6) 11/25/17 06:05 Lymph # 1.3 10^3/uL (1.5-3.5) L 11/25/17 06:05 Warren # 0.4 10^3/uL (0.0-1.0) 11/25/17 06:05 Eos # 0.0 10^3/uL (0.0-0.7) 11/25/17 06:05 Baso # 0.0 10^3/uL (0.0-0.1) 11/25/17 06:05 Absolute Nucleated RBC 0.00 x10^3/uL 11/25/17 06:05 Nucleated RBC % 0.0 /100WBC 11/25/17 06:05 Sodium 142 mmol/L (135-145) 11/25/17 11:00 Potassium 3.7 mmol/L (3.5-5.0) 11/25/17 11:00 Chloride 114 mmol/L (101-111) H 11/25/17 11:00 Carbon Dioxide 22 mmol/L (21-32) 11/25/17 11:00 Anion Gap 6.0 (6-13) 11/25/17 11:00 BUN 25 mg/dL (6-20) H 11/25/17 11:00 Creatinine 1.6 mg/dL (0.6-1.2) H 11/25/17 11:00 Estimated GFR (MDRD) 45 (>89) L 11/25/17 11:00 Glucose 141 mg/dL (70-100) H 11/25/17 11:00 Lactic Acid 0.5 mmol/L (0.5-2.2) 11/25/17 06:05 Calcium 8.2 mg/dL (8.5-10.3) L 11/25/17 11:00 Phosphorus 3.5 mg/dL (2.5-4.6) 11/25/17 06:05 Magnesium 2.0 mg/dL (1.7-2.8) 11/25/17 06:05 Total Bilirubin 0.6 mg/dL (0.2-1.0) 11/24/17 11:05 AST 41 IU/L (10-42) 11/24/17 11:05 ALT 24 IU/L (10-60) 11/24/17 11:05 Alkaline Phosphatase 79 IU/L (42-121) 11/24/17 11:05 Ammonia 9.0 umol/L (7-35) 11/24/17 15:59 Total Creatine Kinase 2001 IU/L (22-269) H* 11/25/17 11:00 Troponin I < 0.04 ng/mL (<0.49) 11/24/17 11:05 Total Protein 8.3 g/dL (6.7-8.2) H 11/24/17 11:05 Albumin 3.1 g/dL (3.2-5.5) L 11/24/17 11:05 Globulin 5.2 g/dL (2.1-4.2) H 11/24/17 11:05 Albumin/Globulin Ratio 0.6 (1.0-2.2) L 11/24/17 11:05 Lipase 24 U/L (22-51) 11/24/17 11:05 Urine Color YELLOW 11/24/17 12:02 Urine Clarity CLEAR (CLEAR) 11/24/17 12:02 Urine pH 5.5 PH (5.0-7.5) 11/24/17 12:02 Ur Specific [place] 1.020 (1.002-1.030) 11/24/17 12:02 Urine Protein 100 mg/dL (NEGATIVE) H 11/24/17 12:02 Urine Glucose (UA) NEGATIVE mg/dL (NEGATIVE) 11/24/17 12:02 Urine Ketones NEGATIVE mg/dL (NEGATIVE) 11/24/17 12:02 Urine Occult Blood LARGE (NEGATIVE) H 11/24/17 12:02 Urine Nitrite NEGATIVE (NEGATIVE) 11/24/17 12:02 Urine Bilirubin NEGATIVE (NEGATIVE) 11/24/17 12:02 Urine Urobilinogen 0.2 (NORMAL) E.U./dL (NORMAL) 11/24/17 12:02 Ur Leukocyte Esterase NEGATIVE (NEGATIVE) 11/24/17 12:02 Urine RBC 6-10 /HPF (0-5) H 11/24/17 12:02 Urine WBC 0-3 /HPF (0-3) 11/24/17 12:02 Ur Squamous Epith Cells NONE SEEN (<= Few) 11/24/17 12:02 Urine Bacteria Rare /HPF (None Seen) 11/24/17 12:02 Ur Microscopic Review INDICATED 11/24/17 12:02 Urine Culture Comments NOT INDICATED 11/24/17 12:02 Urine Opiates Screen POSITIVE (NEGATIVE) H 11/24/17 12:02 Ur Oxycodone Screen NEGATIVE (NEGATIVE) 11/24/17 12:02 Urine Methadone Screen POSITIVE (NEGATIVE) H 11/24/17 12:02 Ur Propoxyphene Screen NEGATIVE (NEGATIVE) 11/24/17 12:02 Ur Barbiturates Screen NEGATIVE (NEGATIVE) 11/24/17 12:02 Ur Tricyclics Screen NEGATIVE (NEGATIVE) 11/24/17 12:02 Ur Phencyclidine Scrn NEGATIVE (NEGATIVE) 11/24/17 12:02 Ur Amphetamine Screen NEGATIVE (NEGATIVE) 11/24/17 12:02 U Methamphetamines Scrn NEGATIVE (NEGATIVE) 11/24/17 12:02 U Benzodiazepines Scrn POSITIVE (NEGATIVE) H 11/24/17 12:02 Urine Cocaine Screen POSITIVE (NEGATIVE) H 11/24/17 12:02 U Cannabinoids Screen NEGATIVE (NEGATIVE) 11/24/17 12:02 - DIAGNOSTIC IMAGING Diagnostic Imaging Results: Final report reviewed Diagnostic Imaging Results Comments: EXAM: [id number] CT/HEADWO ([id number]) EXAM: CT HEAD EXAM DATE: 11/24/2017 11:40 AM. CLINICAL HISTORY: Decreased responsiveness in a 52-year-old male. COMPARISON: None. TECHNIQUE: Multiaxial CT images were obtained from the foramen magnum to the vertex. Reformats: Coronal. IV contrast: None. In accordance with CT protocol optimization, one or more of the following dose reduction techniques were utilized for this exam: automated exposure control, adjustment of mA and/or KV based on patient size, or use of iterative reconstructive technique. FINDINGS: Parenchyma: No intraparenchymal hemorrhage. No evidence of mass, midline shift, or CT findings of infarction. Reyes-white differentiation is distinct. Extraaxial Spaces: Normal for age. No subdural or epidural collections identified. Ventricles: Normal in size and position. Sinuses and Orbits: Imaged paranasal sinuses, orbits, and mastoids show no significant abnormality. Bones: No evidence of fracture or calvarial defect. Other: None. IMPRESSION: Normal examination. No demonstrated cause for the patient's symptoms. EXAM: [id number] XR/CXRLP ([id number]) FRONTAL CHEST: 11/24/2017 CLINICAL INDICATION: Line placement. COMPARISON: 11/24/2017. FINDINGS: Frontal view of the chest demonstrates a right jugular central venous catheter terminating in the proximal right atrium. Scattered atelectasis is noted. The cardiac silhouette is not enlarged. No effusion or pneumothorax is seen. IMPRESSION: RIGHT JUGULAR CENTRAL VENOUS CATHETER TERMINATING IN THE PROXIMAL RIGHT ATRIUM EXAM: [id number] XR/CXR2VW ([id number]) EXAM: CHEST RADIOGRAPHY, 2 VIEWS EXAM DATE: 11/24/2017 11:33 AM. CLINICAL HISTORY: 52-year-old male with cough. COMPARISON: None. TECHNIQUE: Sitting AP and lateral views. FINDINGS: Lungs/Pleura: Likely hypoventilatory changes both lung bases. No definite infiltrates. No pleural effusion. No pneumothorax. Poor inspiratory effort. Mediastinum: Heart size normal considering body habitus and inspiratory effort. No pulmonary vascular congestion or adenopathy. Other: Trachea is midline. Osseous structures are unremarkable for age. IMPRESSION: Poor inspiratory effort. Atelectatic changes. No overt CHF, pneumonia, or other acute process. - FOLLOW UP Follow Up: The patient will follow up with his methadone clinic. He was counseled on need to quit using illicit drugs. He was encouraged to drink lots of fluid. - TIME SPENT Time Spent in Discharge (Minutes): 35
== END 2017-11-25 15:01 | disposition home or self-care (01) ==
LOC: EDUNIT# → ED 09:51 → OBS 12:41 → MS2 13:55 → OBS 20:01
PROVIDERS: ADMIT Internal Medicine; ATTEND Internal Medicine
PROC: 02H633Z Insertion of Infusion Device into Right Atrium, Percutaneous Approach (ICD-10-PCS; principal; 2017-11-24)
DX: T42.4X1A Poisoning by benzodiazepines, accidental (unintentional), initial encounter (principal); G92 Toxic encephalopathy; Y92.89 Other specified places as the place of occurrence of the external cause; M62.82 Rhabdomyolysis; N17.9 Acute kidney failure, unspecified; R40.2412 Glasgow coma scale score 13-15, at arrival to emergency department; I12.9 Hypertensive chronic kidney disease with stage 1 through stage 4 chronic kidney disease, or unspecified chronic kidney disease; N18.9 Chronic kidney disease, unspecified; D64.9 Anemia, unspecified; E86.0 Dehydration; I87.2 Venous insufficiency (chronic) (peripheral); L97.321 Non-pressure chronic ulcer of left ankle limited to breakdown of skin; L97.921 Non-pressure chronic ulcer of unspecified part of left lower leg limited to breakdown of skin; F11.20 Opioid dependence, uncomplicated; F19.10 Other psychoactive substance abuse, uncomplicated; F17.210 Nicotine dependence, cigarettes, uncomplicated; B19.20 Unspecified viral hepatitis C without hepatic coma; K74.60 Unspecified cirrhosis of liver; I73.9 Peripheral vascular disease, unspecified; N40.0 Benign prostatic hyperplasia without lower urinary tract symptoms; J44.9 Chronic obstructive pulmonary disease, unspecified; F32.9 Major depressive disorder, single episode, unspecified; Z89.429 Acquired absence of other toe(s), unspecified side; Z86.718 Personal history of other venous thrombosis and embolism; Z86.14 Personal history of Methicillin resistant Staphylococcus aureus infection
CPT/HCPCS: 36415; 36556; 70450; 71046; 80048; 80053; 80306; 81001; 82140; 82550; 83605; 83690; 83735; 84100; 84484; 85025; 87640; 93005; 96361; 96374; 99284; 99285; A9270; G0378; 71045; 81003; 87086; 96360

== ENCOUNTER 2018-01-01 20:55 | Outpatient (CLI) | payer MEDICAID | END 2018-01-01 20:56 | disposition critical access hospital (66) | LOC: EMS 20:55 | PROVIDERS: ATTEND Surgery | DX: R25.9 Unspecified abnormal involuntary movements (principal); R06.02 Shortness of breath; R03.1 Nonspecific low blood-pressure reading | CPT/HCPCS: A0425; A0429 ==

== ENCOUNTER 2018-01-01 21:09 | Emergency (ER) | payer MEDICAID ==
[2018-01-01] MEDS ORDERED: SODIUM CHLORIDE 0.9% 1,000 ML IV ONE ×3 (21:40)
[2018-01-01 22:08] LABS: BASOPHILS % (AUTO) 0.7 %; EOSINOPHILS % (AUTO) 0.4 %; HGB - HEMOGLOBIN 7.4 g/dL (14.0-18.0); LYMPHOCYTES % (AUTO) 14.1 %; MEAN CORPUSCULAR HEMOGLOBIN 25.2 pg (27.0-31.0); MEAN CORPUSCULAR HGB CONC 31.4 g/dL (32.0-36.0); MEAN CORPUSCULAR VOLUME 80.2 fL (80.0-94.0); MEAN PLATELET VOLUME 7.5 fL (7.4-11.4); MONOCYTES % (AUTO) 8.7 %; NEUTROPHILS % (AUTO) 76.1 %; PLT - PLATELET COUNT 229 10^3/uL (130-450); RED BLOOD COUNT 2.96 10^6/uL (4.70-6.10); RED CELL DISTRIBUTION WIDTH 21.6 % (12.0-15.0); WHITE BLOOD COUNT 5.3 x10^3/uL (4.8-10.8)
--- NOTE | 2018-01-01 22:08 | XRAY Preliminary Report ---
Exam: XR CHEST 1 VIEW X-RAY IMPRESSION: 1. Small streaky bibasilar atelectasis and/or scarring. 2. Additional small left basilar airspace disease may be from aspiration or pneumonia. Trace left eff usion. [facility] SITE ID: [id number]
[2018-01-01 22:09] LABS: ABNORMAL LYMPHS % (MANUAL) 0 %
--- NOTE | 2018-01-01 22:22 | XRAY Report ---
EXAM: CHEST RADIOGRAPHY EXAM DATE: 01/01/2018 09:51 PM. CLINICAL HISTORY: Shortness of breath for one month, worsening over the last 1 day. COMPARISON: Exams from 11/24/2017. TECHNIQUE: 1 view. FINDINGS: Lungs/Pleura: Small left basilar opacity is noted. There is mild elevation of the left hemidiaphragm. Additional left mid lung field as well as right basilar streaky opacities are present. There is no e vidence of a pneumothorax. Trace left-sided effusion. Mediastinum: Within exam limitations, the cardiomediastinal contour is normal. Other: Old grade 3 left acromioclavicular joint injury. Also suspect bilateral distal clavicular oste otomy versus post traumatic osteolysis. IMPRESSION: 1. Small streaky bibasilar atelectasis and/or scarring. 2. Additional small left basilar airspace disease may be from aspiration or pneumonia. Trace left eff usion. [facility] Referring Provider Line: [phone] SITE ID: [id number]
--- NOTE | 2018-01-01 22:25 | ED Physician Documentation ---
History of Present Illness - Stated complaint Stated Complaint: SOA - Chief complaint Chief Complaint: Resp - History obtained from History obtained from: Patient, EMS - History of Present Illness Timing: Today Pain level max: 0 Pain level now: 0 - Additonal information Additional information: Patient was at [facility] for 2 weeks for pneumonia and a venous stasis ulcer to the E. States discharged 2 days ago and today felt shaky tonight at 7pm and called 911. No LOC. States this has occurred when he took too much gabapentin in the past. Has had diarrhea for past 2 days, loose, watery. States 10-20 times per day. Decreased oral intake at home. EMS found him hypotensive and hypoxic upon their arrival. Review of Systems Ten Systems: 10 systems reviewed and negative Constitutional: denies: Fever, Chills Nose: denies: Rhinorrhea / runny nose, Congestion Throat: denies: Sore throat Cardiac: denies: Chest pain / pressure Respiratory: reports: Dyspnea, Cough. denies: Hemoptysis, Wheezing GI: reports: Diarrhea. denies: Abdominal Pain, Nausea, Vomiting, Hematemesis, Bloody / black stool : denies: Dysuria Skin: denies: Rash Musculoskeletal: denies: Neck pain, Back pain PD PAST MEDICAL HISTORY - Past Medical History Cardiovascular: Hypertension, Peripheral Vascular Disease (Status post toe amputation), Deep vein thrombosis Respiratory: COPD Endocrine/Autoimmune: None GI: Hepatitis, Cirrhosis (Hepatitis C) : Benign prostate hypertrophy, Renal insuffiency HEENT: None Psych: Depression Musculoskeletal: None Derm: Other (Cellulitis and recurrent infections of his lower extremities) - Past Surgical History Ortho: Spine surgery, Other - Present Medications Home Medications: Ambulatory Orders Medication Instructions Recorded Confirmed Methadone HCl [Methadose] 81 mg PO DAILY 03/14/16 11/25/17 Lisinopril 10 mg PO DAILY 11/24/17 11/24/17 Prazosin HCl 2 - 6 mg PO QPM PRN 11/24/17 11/25/17 Promethazine HCl 50 mg PO BID PRN 11/24/17 11/25/17 Tamsulosin [Flomax] 0.4 mg PO DAILY 11/24/17 11/24/17 cloNIDine HCl [Clonidine HCl] 0.3 mg PO TID PRN 11/24/17 11/24/17 hydrOXYzine HCl [Hydroxyzine HCl] 50 mg PO Q6H PRN 11/24/17 11/24/17 Gabapentin [Gabapentin] 400 mg PO BID 11/25/17 11/25/17 - Allergies Allergies/Adverse Reactions: Allergies Allergy/AdvReac Type Severity Reaction Status Date / Time simvastatin AdvReac Severe Muscle Verified 01/01/18 21:16 Cramps - Social History Does the pt smoke?: Yes Smoking Status: Current every day smoker Does the pt drink ETOH?: No Does the pt have substance abuse?: Yes - Immunizations Immunizations are current?: Yes - POLST Patient has POLST: No POLST Status: Full Code PD ED PE NORMAL - Vitals Vital signs reviewed: Yes - General General: Alert and oriented X 3, No acute distress - HEENT HEENT: PERRL, Other (dry lips, tongue) - Neck Neck: Supple, no meningeal sign - Cardiac Cardiac: RRR - Respiratory Respiratory: Other (rhonchi B) - Abdomen Abdomen: Soft, Non tender, Non distended - Derm Derm: Warm and dry, No rash - Extremities Extremities: No edema, No calf tenderness / cord, Other (L leg, chronic venous stasis ulcer) - Neuro Neuro: Alert and oriented X 3 - Psych Psych: Normal mood, Normal affect Results - Vitals Vitals: Vital Signs - 24 hr 01/01/18 01/01/18 01/01/18 21:11 21:13 21:30 Temperature 37.2 C Heart Rate 106 H 109 H 106 H Respiratory 22 20 Rate Blood Pressure 77/64 L 77/46 L 64/41 L O2 Saturation 75 L 88 L 01/01/18 01/01/18 01/01/18 21:45 22:00 22:15 Temperature Heart Rate 98 98 94 Respiratory 20 18 Rate Blood Pressure 84/46 L 70/39 L 67/47 L O2 Saturation 99 92 94 01/01/18 01/01/18 01/01/18 22:25 22:35 22:45 Temperature Heart Rate 93 93 95 Respiratory 16 18 18 Rate Blood Pressure 78/47 L 83/44 L 76/44 L O2 Saturation 92 93 90 L 01/01/18 01/01/18 01/01/18 22:55 23:00 23:15 Temperature Heart Rate 94 94 87 Respiratory 18 18 Rate Blood Pressure 76/73 L 76/43 L 73/33 L O2 Saturation 92 93 94 01/01/18 01/02/18 01/02/18 23:30 00:00 00:05 Temperature Heart Rate 94 82 83 Respiratory 18 20 20 Rate Blood Pressure 81/45 L 76/56 L 95/47 L O2 Saturation 94 96 95 01/02/18 00:15 Temperature Heart Rate 83 Respiratory 18 Rate Blood Pressure 81/57 L O2 Saturation 93 Oxygen O2 Source Nasal cannula Oxygen Flow Rate 5 - EKG (time done) 2120 Rate: Rate (enter#) (103) Rhythm: Sinus tachycardia [place]: Normal Intervals: Normal [place] QRS: Normal Ischemia: Other (prolonged QT) - Labs Labs: Laboratory Tests 01/01/18 01/01/18 01/01/18 21:45 21:45 21:45 WBC 5.3 RBC 2.96 L Hgb 7.4 L Hct 23.7 L MCV 80.2 MCH 25.2 L MCHC 31.4 L RDW 21.6 H Plt Count 229 MPV 7.5 Neut # Not Reportable Lymph # Not Reportable [place] # Not Reportable Eos # Not Reportable Baso # Not Reportable Absolute Nucleated RBC Not Reportable Total Counted 100 Band Neuts % (Manual) 19 H Abnorm Lymph % (Manual) 0 Metamyelocytes % 1 H Nucleated RBC % Not Reportable Neutrophils # (Manual) 3.8 Lymphocytes # (Manual) 1.3 L Monocytes # (Manual) 0.1 Eosinophils # (Manual) 0.1 Basophils # (Manual) 0.0 Differential Comment MANUAL DIFFERENTIAL Platelet Estimate NORMAL (130-450,000) Platelet Morphology NORMAL APPEARANCE RBC Morph Micro Appear 2+ HYPOCHROMASIA Sodium 132 L Potassium 4.2 Chloride 100 L Carbon Dioxide 17 L Anion Gap 15.0 H BUN 95 H* Creatinine 10.8 H* Estimated GFR (MDRD) 5 L Glucose 106 H Lactic Acid 0.7 Calcium 7.9 L Total Bilirubin 0.7 AST 29 ALT 20 Alkaline Phosphatase 102 Total Protein 7.2 Albumin 2.5 L Globulin 4.7 H Albumin/Globulin Ratio 0.5 L Lipase 20 L - Rads (name of study) cxr Radiology: Prelim report reviewed, EMP read contemporaneously, See rad report ( Small streaky bibasilar atelectasis and/or scarring. Additional small left basilar airspace disease may be from aspiration or pneumonia. Trace left effusion. ) PD MEDICAL DECISION MAKING - ED course Complexity details: reviewed old records, reviewed results, re-evaluated patient , considered differential, d/w patient, d/w family ED course: Patient is a 52-year-old gentleman who presents to the emergency department complaint of not feeling well today. He was recently released from [facility] for pneumonia and treatment of the venous stasis ulcer on his left lower extremity for the past 2 weeks. States he has been home for 2 days and has had profuse diarrhea 15-20 times per day. States that he has not been eating and drinking much because he has not had much appetite. Possible C. difficile? He was initially hypotensive and hypoxic. Normal white blood cell count. Found to be in acute renal failure. Last creatinine here was 1.6, now 10.8. Appears significantly dehydrated. Patient is an ex-IV drug user and difficult IV start. I placed several IVs in his arms, that would work for a few minutes at a time and then infiltrate. Therefore a deep brachial vein was used with a long Angiocath which seems to be working well. Blood pressure improved. Phone call was placed to 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 Patient was given several liters of IV fluid in the emergency department. Lactate is normal. No evidence of sepsis. He is still requiring supplemental oxygen, however is not requiring any more oxygen as his blood pressure improved with IV fluids. Discussed his case with Dr. Alonzo [facility] who graciously accepts in transfer at 0100 on 01/02/2018. Patient will be transferred to [facility]. This document was made in part using voice recognition software. While efforts are made to proofread this document, sound alike and grammatical errors may occur. Departure - Departure Disposition: 02 Transfer Acute Care Hosp Clinical Impression: Dehydration, Hypoxia Acute renal failure (ARF) Qualifiers: Acute renal failure type: unspecified Qualified Code(s): N17.9 - Acute kidney failure, unspecified Hypotension Qualifiers: Hypotension type: unspecified hypotension type Qualified Code(s): I95.9 - Hypotension, unspecified Condition: Stable
[2018-01-01 22:29] LABS: BAND NEUTROPHILS % (MANUAL) 19 %; EOSINOPHILS # (MANUAL) 0.1 10^3/uL (0-0.7); LYMPHOCYTES # (MANUAL) 1.3 10^3/uL (1.5-3.5); LYMPHOCYTES % (MANUAL) 25 %; METAMYELOCYTES % (MANUAL) 1 %; MONOCYTES # (MANUAL) 0.1 10^3/uL (0.0-1.0); NEUTROPHILS # (MANUAL) 3.8 10^3/uL (1.5-6.6); NEUTROPHILS % (MANUAL) 52 %
[2018-01-01 22:30] LABS: DIFFERENTIAL COMMENT MANUAL DIFFERENTIAL; PLATELET ESTIMATE, MANUAL NORMAL (130-450,000) (NORMAL); PLATELET MORPHOLOGY NORMAL APPEARANCE (NORMAL)
[2018-01-01 22:46] LABS: ALBUMIN 2.5 g/dL (3.2-5.5); ALBUMIN/GLOBULIN RATIO 0.5 (1.0-2.2); BILIRUBIN,TOTAL 0.7 mg/dL (0.2-1.0); CALCIUM 7.9 mg/dL (8.5-10.3); TOTAL PROTEIN 7.2 g/dL (6.7-8.2)
[2018-01-01 22:47] LABS: CREATININE 10.8 mg/dL (0.6-1.2)
[2018-01-02] MEDS ORDERED: SODIUM CHLORIDE 0.9% 1,000 ML IV ONE (00:49)
[2018-01-02 02:21] VITALS: BP 97/53
== END 2018-01-02 02:33 | disposition short-term general hospital (02) ==
LOC: EDUNIT# → ED 21:09
DX: E86.0 Dehydration (principal); R09.02 Hypoxemia; N17.9 Acute kidney failure, unspecified; I95.9 Hypotension, unspecified; I10 Essential (primary) hypertension; J90 Pleural effusion, not elsewhere classified; I73.9 Peripheral vascular disease, unspecified; J44.9 Chronic obstructive pulmonary disease, unspecified; B19.20 Unspecified viral hepatitis C without hepatic coma; N40.0 Benign prostatic hyperplasia without lower urinary tract symptoms; F17.200 Nicotine dependence, unspecified, uncomplicated; I83.028 Varicose veins of left lower extremity with ulcer other part of lower leg; L97.829 Non-pressure chronic ulcer of other part of left lower leg with unspecified severity; Z87.01 Personal history of pneumonia (recurrent); Z89.429 Acquired absence of other toe(s), unspecified side; Z86.718 Personal history of other venous thrombosis and embolism
CPT/HCPCS: 36410; 36415; 71045; 80053; 83605; 83690; 85025; 87040; 93005; 96360; 96361; 99285

== ENCOUNTER 2018-01-02 02:27 | Outpatient (CLI) | payer MEDICAID | END 2018-01-02 02:28 | disposition short-term general hospital (02) | LOC: EMS 02:27 | PROVIDERS: ATTEND Surgery | DX: R19.7 Diarrhea, unspecified (principal); I95.9 Hypotension, unspecified | CPT/HCPCS: A0425; A0426 ==